=== PATIENT | female | born 1955 | race African-American/Black ===

== ENCOUNTER 2016-07-22 17:56 | Observation (INO) | payer OTHER ==
[~2016-07-22] VITALS: Ht 160 cm; Wt 84.7 kg
[~2016-07-22 17:56] MED LIST: ADVAIR 250/501 DISK IH; ASPIRIN325 MG PO; CENTRUM SILVER1 EAC3 PO; CYCLOBENZAPRINE10 MG PO; ENDOCET 5-3251 EACH PO; FENOFIBRATE145 M1 PO; FEOSOL325 MG PO; FISH OIL OMEGA1 EACH PO; Feosol PO; Fish Oil PO; GLUCOPHAGE500 MG PO; JANUVIA25 M1 PO; MECLIZINE HCL25 MG PO; METFORMIN HCL1000 MG PO; METFORMIN HCL500 M1 PO; Motrin PO; NORTRIPTYLINE H25 MG PO; OMEPRAZOLE40 M1 PO; ONGLYZA2.5 MG PO; PRAVACHOL40 MG PO; PRAVASTATIN SOD40 MG PO; PRILOSEC OTC20 M1 PO; PRILOSEC40 MG PO; SPIRIVA1 INHALATI IH; TRAMADOL HCL100 MG PO; TRAMADOL HCL50 MG PO
[2016-07-22 19:01] LABS: HEMATOCRIT 30.9 % (36.0-46.0); MCH 21.9 PG (29.0-34.0); MCHC 32.4 G/DL (30.0-36.0); MCV 67.6 FL (83-99); MEAN PLAT.VOLUME 9.6 uM^3 (9.5-12.4); PLATELET COUNT 262 K/uL (156-360); RBC DIS.WIDTH-SD 42.9 % (39-53); RED BLOOD COUNT 4.57 M/uL (3.80-5.20); WHITE BLOOD COUNT 10.1 K/uL (4.1-10.2)
[2016-07-22 19:12] LABS: CHLORIDE 110 mEq/L (99-109); POTASSIUM 3.2 mEq/L (3.7-5.4); SODIUM 140 mEq/L (136-147)
[2016-07-22 19:14] LABS: GLUCOSE 110 mg/dL (70-99)
[2016-07-22 19:15] LABS: ANION GAP 12 MEQ/L (2-14)
[2016-07-22 19:18] LABS: GFR ESTIMATE (CALCULATED) 59 mL/min/
[2016-07-22 19:19] LABS: UREA NITROGEN (BUN) 18 mg/dL (9-23)
[2016-07-22 19:24] LABS: TROP-I INTERPRETATION NEGATIVE; TROPONIN-I < 0.01 ng/mL (0.0-0.30)
[2016-07-22 19:43] LABS: D-DIMER ELISA 0.73 mg/L FEU (< 0.57)
[2016-07-22] MEDS ORDERED: OMEPRAZOLE40 M1 PO (22:22)
[2016-07-22] MEDS ORDERED: BACLOFEN10 MG PO (22:23)
[2016-07-22] MEDS ORDERED: FISH OIL 1,2001 EAC4 PO (22:23)
[2016-07-22] MEDS ORDERED: PROMETHAZINE12.5 M1 PO (22:24)
[2016-07-22] MEDS ORDERED: AMBIEN10 MG PO (22:24)
[2016-07-22] MEDS ORDERED: MELOXICAM15 MG PO (22:25)
[2016-07-22] MEDS ORDERED: JANUVIA25 M1 PO (22:25)
[2016-07-23] VITALS (8 sets, daily range): BP systolic 114–151; BP diastolic 59–89
[2016-07-23 01:10] LABS: TROP-I INTERPRETATION NEGATIVE; TROPONIN-I < 0.01 ng/mL (0.0-0.30)
[2016-07-23 04:08] LABS: IRON 13 MCG/DL (35-150)
[2016-07-23 06:38] LABS: HEMATOCRIT 27.4 % (36.0-46.0); MCH 21.9 PG (29.0-34.0); MCHC 31.8 G/DL (30.0-36.0); MEAN PLAT.VOLUME 9.5 uM^3 (9.5-12.4); PLATELET COUNT 278 K/uL (156-360); RBC DIS.WIDTH-CV 17.5 % (11.8-14.6); RBC DIS.WIDTH-SD 44.6 % (39-53); RED BLOOD COUNT 3.97 M/uL (3.80-5.20); WHITE BLOOD COUNT 8.4 K/uL (4.1-10.2)
[2016-07-23 07:08] LABS: TROP-I INTERPRETATION NEGATIVE; TROPONIN-I < 0.01 ng/mL (0.0-0.30)
[2016-07-23 07:17] LABS: ALKALINE PHOSPHATASE 125 IU/L (3-129); ANION GAP 9 MEQ/L (2-14); CHLORIDE 109 MEQ/L (99-109); GFR ESTIMATE (CALCULATED) > 59 mL/min/; GLUCOSE 95 mg/dL (70-99); SAMPLE HEMOLYSIS CHECK 0; SAMPLE ICTERIC CHECK 0; SAMPLE LIPEMIA CHECK 0; SODIUM 140 MEQ/L (136-147); TOTAL BILIRUBIN 0.3 MG/DL (0.0-1.0); UREA NITROGEN (BUN) 16 mg/dL (9-23)
[2016-07-23 08:17] LABS: FERRITIN 25 NG/ML (10-291)
[2016-07-23 12:35] LABS: POINT-OF-CARE METER ID UU13113700
[2016-07-23 16:32] LABS: POINT-OF-CARE METER ID UU14162513
[2016-07-23 22:43] LABS: POINT-OF-CARE METER ID UU13113700
[2016-07-24 04:55] VITALS: BP 122/74
[2016-07-24 07:04] LABS: HEMATOCRIT 29.7 % (36.0-46.0); MCH 21.3 PG (29.0-34.0); MCHC 31.3 G/DL (30.0-36.0); MEAN PLAT.VOLUME 9.1 uM^3 (9.5-12.4); PLATELET COUNT 281 K/uL (156-360); RBC DIS.WIDTH-CV 17.4 % (11.8-14.6); RED BLOOD COUNT 4.37 M/uL (3.80-5.20); WHITE BLOOD COUNT 7.6 K/uL (4.1-10.2)
[2016-07-24 09:02] VITALS: BP 154/70
== END 2016-07-24 11:20 | disposition home or self-care (01) ==
LOC: EME 17:56 → 5WEST 22:32 → EDOF 22:32 → 5WEST 07-23 00:05
PROVIDERS: Internal Medicine; Nurse Practitioner Adult Health
DX: R07.9 Chest pain, unspecified (principal); R10.12 Left upper quadrant pain; I50.9 Heart failure, unspecified; H44.9 Unspecified disorder of globe; I10 Essential (primary) hypertension; E11.9 Type 2 diabetes mellitus without complications; Z86.73 Personal history of transient ischemic attack (TIA), and cerebral infarction without residual deficits; R00.2 Palpitations; K21.9 Gastro-esophageal reflux disease without esophagitis; E87.6 Hypokalemia; Z79.82 Long term (current) use of aspirin; Z79.84 Long term (current) use of oral hypoglycemic drugs; Z87.891 Personal history of nicotine dependence; Z90.710 Acquired absence of both cervix and uterus; Z90.49 Acquired absence of other specified parts of digestive tract
CPT/HCPCS: 71020; 71275; 74176; 80048; 80053; 82272; 82607; 82728; 82746; 82948; 83540; 84466; 84484; 85027; 85379; 87641; 93005; 94640; 99281; 99284; G0378; J1644; J1756; J1815; J7040; J7050

== ENCOUNTER 2016-10-16 15:12 | Inpatient (IN) | payer OTHER ==
[~2016-10-16] VITALS: Ht 160 cm; Wt 83.2 kg
[~2016-10-16 15:12] MED LIST changes: +AMBIEN10 MG PO; +BACLOFEN10 MG PO; +FISH OIL 1,2001 EAC4 PO; +MELOXICAM15 MG PO; +PROMETHAZINE12.5 M1 PO
[2016-10-16 16:15] LABS: CHLORIDE 105 mEq/L (99-109); POTASSIUM 3.6 mEq/L (3.7-5.4); SODIUM 139 mEq/L (136-147)
[2016-10-16 16:16] LABS: GLUCOSE 139 mg/dL (70-99)
[2016-10-16 16:18] LABS: ANION GAP 13 MEQ/L (2-14)
[2016-10-16 16:20] LABS: GFR ESTIMATE (CALCULATED) > 59 mL/min/
[2016-10-16 16:21] LABS: UREA NITROGEN (BUN) 10 mg/dL (9-23)
[2016-10-16 16:27] LABS: TROP-I INTERPRETATION NEGATIVE; TROPONIN-I < 0.01 ng/mL (0.0-0.30)
[2016-10-16] MEDS ORDERED: CYCLOBENZAPRINE10 MG PO (16:33)
[2016-10-16] MEDS ORDERED: MORPHINE SULFAT15 M1 PO (16:33)
[2016-10-16] MEDS ORDERED: METOPROLOL SUCC25 MG PO (16:34)
[2016-10-16 16:36] LABS: HEMATOCRIT 34.4 % (36.0-46.0); MCH 22.2 PG (29.0-34.0); MCHC 31.7 G/DL (30.0-36.0); MCV 70.2 FL (83-99); MEAN PLAT.VOLUME 9.3 uM^3 (9.5-12.4); PLATELET COUNT 319 K/uL (156-360); RBC DIS.WIDTH-CV 18.9 % (11.8-14.6); RBC DIS.WIDTH-SD 47.3 % (39-53); WHITE BLOOD COUNT 8.5 K/uL (4.1-10.2)
[2016-10-16] MEDS ORDERED: SPIRIVA1 INHALATI IH (16:54)
[2016-10-16] MEDS ORDERED: ADVAIR 250/501 DISK IH (16:55)
[2016-10-16] MEDS ORDERED: LITE COAT ASPI325 M1 PO (16:56)
[2016-10-16] MEDS ORDERED: METFORMIN HCL500 M1 PO (16:57)
[2016-10-16 17:09] LABS: D-DIMER ELISA 0.69 mg/L FEU (< 0.57)
[2016-10-16 22:24] VITALS: BP 126/77
[2016-10-16 22:58] LABS: TROP-I INTERPRETATION NEGATIVE; TROPONIN-I < 0.01 ng/mL (0.0-0.30)
[2016-10-17] VITALS: BP 133/75
[2016-10-17 03:12] VITALS: BP 130/82
[2016-10-17 05:35] LABS: TROP-I INTERPRETATION NEGATIVE; TROPONIN-I < 0.01 ng/mL (0.0-0.30)
[2016-10-17 05:45] LABS: ANION GAP 12 MEQ/L (2-14); CHLORIDE 103 MEQ/L (99-109); GFR ESTIMATE (CALCULATED) > 59 mL/min/; GLUCOSE 148 mg/dL (70-99); POTASSIUM 3.7 MEQ/L (3.7-5.4); SAMPLE HEMOLYSIS CHECK 1; SAMPLE ICTERIC CHECK 0; SAMPLE LIPEMIA CHECK 0; SODIUM 138 MEQ/L (136-147); UREA NITROGEN (BUN) 11 mg/dL (9-23)
[2016-10-17 06:42] LABS: HEMATOCRIT 31.8 % (36.0-46.0); MCHC 31.1 G/DL (30.0-36.0); MCV 70.8 FL (83-99); RBC DIS.WIDTH-CV 19.2 % (11.8-14.6); RBC DIS.WIDTH-SD 47.9 % (39-53); RED BLOOD COUNT 4.49 M/uL (3.80-5.20); WHITE BLOOD COUNT 8.9 K/uL (4.1-10.2)
[2016-10-17 07:08] LABS: MEAN PLAT.VOLUME 9.8 uM^3 (9.5-12.4); PLATELET COUNT 245 K/uL (156-360)
[2016-10-17 07:17] VITALS: BP 111/69
[2016-10-17 08:41] LABS: POINT-OF-CARE METER ID UU13113700
[2016-10-17 11:00] VITALS: BP 117/70
[2016-10-17 12:38] LABS: POINT-OF-CARE METER ID UU13113700
[2016-10-17 16:05] LABS: POINT-OF-CARE METER ID UU13113696
[2016-10-17 17:44] LABS: POINT-OF-CARE METER ID UU13113819
== END 2016-10-17 20:30 | disposition home or self-care (01) | DRG 287 ==
LOC: EME 15:12 → 5WEST 18:25 → EDOF 18:25 → 5WEST 19:31
PROVIDERS: Hospitalist; Internal Medicine
DX: R07.2 Precordial pain (principal); I47.2 Ventricular tachycardia; M94.0 Chondrocostal junction syndrome [Tietze]; I10 Essential (primary) hypertension; E11.9 Type 2 diabetes mellitus without complications; G89.29 Other chronic pain; E78.5 Hyperlipidemia, unspecified; K21.9 Gastro-esophageal reflux disease without esophagitis; J44.9 Chronic obstructive pulmonary disease, unspecified; Z87.891 Personal history of nicotine dependence; Z86.73 Personal history of transient ischemic attack (TIA), and cerebral infarction without residual deficits; R94.39 Abnormal result of other cardiovascular function study; E66.9 Obesity, unspecified; Z68.32 Body mass index [BMI] 32.0-32.9, adult
CPT/HCPCS: 71020; 71275; 80048; 82948; 84484; 85027; 85379; 93005; 99202; 99281; 99284; C1769; C1887; G0378; J1815; J2250; J3010

== ENCOUNTER 2017-07-06 15:40 | Emergency (ER) | payer OTHER ==
[~2017-07-06] VITALS: Ht 160 cm; Wt 85.0 kg
[~2017-07-06 15:40] MED LIST changes: +LITE COAT ASPI325 M1 PO; +METOPROLOL SUCC25 MG PO; +MORPHINE SULFAT15 M1 PO
[2017-07-06 16:17] LABS: HEMATOCRIT 34.4 % (36.0-46.0); MCH 24.2 PG (29.0-34.0); MCHC 32.6 G/DL (30.0-36.0); MCV 74.5 FL (83-99); MEAN PLAT.VOLUME 9.2 uM^3 (9.5-12.4); PLATELET COUNT 314 K/uL (156-360); RBC DIS.WIDTH-CV 17.7 % (11.8-14.6); RBC DIS.WIDTH-SD 47.4 % (39-53); RED BLOOD COUNT 4.62 M/uL (3.80-5.20); WHITE BLOOD COUNT 9.6 K/uL (4.1-10.2)
[2017-07-06 16:21] LABS: CHLORIDE 106 mEq/L (99-109); POTASSIUM 3.7 mEq/L (3.7-5.4); SODIUM 139 mEq/L (136-147)
[2017-07-06 16:23] LABS: GLUCOSE 116 mg/dL (70-99)
[2017-07-06 16:24] LABS: ANION GAP 13 MEQ/L (2-14)
[2017-07-06 16:27] LABS: GFR ESTIMATE (CALCULATED) > 59 mL/min/
[2017-07-06 16:28] LABS: UREA NITROGEN (BUN) 14 mg/dL (9-23)
[2017-07-06 16:33] LABS: TROP-I INTERPRETATION NEGATIVE; TROPONIN-I < 0.01 ng/mL (0.0-0.30)
[2017-07-06 18:43] LABS: TROP-I INTERPRETATION NEGATIVE; TROPONIN-I < 0.01 ng/mL (0.0-0.30)
[2017-07-06] MEDS ORDERED: ASPIRIN81 M2 PO (19:17)
[2017-07-06] MEDS ORDERED: MORPHINE SULFAT15 MG PO (19:19)
[2017-07-06] MEDS ORDERED: VISINE DRY EYE15 ML BOTH EYES (19:20)
[2017-07-06] MEDS ORDERED: CENTRUM SILVER1 EAC4 PO (19:20)
[2017-07-06] MEDS ORDERED: FISH OIL + D31 EACH PO (19:21)
[2017-07-06] MEDS ORDERED: MONTELUKAST SOD10 MG PO (19:22)
[2017-07-06] MEDS ORDERED: ANTIVERT25 MG PO (19:22)
[2017-07-06] MEDS ORDERED: METFORMIN HCL500 M1 PO (19:23)
[2017-07-06] MEDS ORDERED: ATIVAN0.5 MG PO (22:05)
[2017-07-06 22:38] VITALS: BP 146/90
== END 2017-07-06 22:39 | disposition home or self-care (01) ==
LOC: EME 15:40
PROVIDERS: Physician Assistant
DX: R07.9 Chest pain, unspecified (principal); R06.00 Dyspnea, unspecified; F41.9 Anxiety disorder, unspecified; K21.9 Gastro-esophageal reflux disease without esophagitis; J44.9 Chronic obstructive pulmonary disease, unspecified; E11.9 Type 2 diabetes mellitus without complications; E78.5 Hyperlipidemia, unspecified; F32.9 Major depressive disorder, single episode, unspecified; Z86.73 Personal history of transient ischemic attack (TIA), and cerebral infarction without residual deficits; Z72.0 Tobacco use
CPT/HCPCS: 70498; 71020; 71275; 80048; 84443; 84484; 85027; 85379; 93005; 94640; 99281; 99285; J7030

== ENCOUNTER 2017-12-08 12:30 | Day surgery (SDC) | payer BC, OTHER ==
[~2017-12-08] VITALS: Ht 160 cm; Wt 81.6 kg
[~2017-12-08 12:30] MED LIST changes: +ANTIVERT25 MG PO; +ASPIRIN81 M2 PO; +ATIVAN0.5 MG PO; +CENTRUM SILVER1 EAC4 PO; +FISH OIL + D31 EACH PO; +MONTELUKAST SOD10 MG PO; +MORPHINE SULFAT15 MG PO; +VISINE DRY EYE15 ML BOTH EYES
== END 2017-12-08 14:39 | disposition home or self-care (01) ==
LOC: PAIN 12:30 → SDC 13:00 → PAIN 13:00
PROVIDERS: Anesthesiology Pain Medicine
DX: M16.11 Unilateral primary osteoarthritis, right hip (principal); M47.812 Spondylosis without myelopathy or radiculopathy, cervical region; M47.816 Spondylosis without myelopathy or radiculopathy, lumbar region; E11.9 Type 2 diabetes mellitus without complications; I10 Essential (primary) hypertension; M54.5 Low back pain; G89.29 Other chronic pain; J44.9 Chronic obstructive pulmonary disease, unspecified; K21.9 Gastro-esophageal reflux disease without esophagitis; R00.0 Tachycardia, unspecified; Z86.73 Personal history of transient ischemic attack (TIA), and cerebral infarction without residual deficits; Z87.891 Personal history of nicotine dependence; Z79.84 Long term (current) use of oral hypoglycemic drugs; Z79.82 Long term (current) use of aspirin
CPT/HCPCS: 82948; J1030; J2250; S0020